=== PATIENT | female | born 1935 | race Caucasian/White ===

== ENCOUNTER → 2017-06-18 | Outpatient (CLI) | payer MEDICARE ==
[2017-06-18] VITALS (11 sets, daily range): BP systolic 103–159; BP diastolic 54–83
[~2017-06-18] VITALS: Ht 170.2 cm; Wt 72.6 kg
[~2017-06-18] MED LIST: ACETAMINOPHEN 325 MG TABLET. PO PRN; ALIS300T PO; ASCO1TAB5 PO; ASPI-482 PO; ATROPINE 0.5 MG/5 ML DISP.SYRIN. IV PRN; BISACODYL 10 MG SUPP.RECT. PR PRN; BUDE0.5A IH; CALC500T30 PO; CHOL500016 PO; CINN500C2 PO; CLOP75TA PO; CONTRAST GIVEN MC PRN; DILT300C52 PO; DOXY100C14 PO; FEXO180T81 PO; GLUC1TAB33 PO; GUAI600T47 PO; HEPARIN for IV BOLUS 10,000 UNIT/10 ML VIAL. IV ONE; HEPARIN for IV BOLUS 10,000 UNIT/10 ML VIAL. ONE; IODIXANOL 320 MG/ML 100 ML VIAL. IART ONE; IODIXANOL 320 MG/ML 100 ML VIAL. ONE; IPRA3AMP NEB; IV 1/2 NORMAL SALINE 1,000 ML IV SCH; LACTULOSE 20 GM/30 ML SOLUTION. PO PRN; LEVO75TA5 PO; LIDOCAINE 2% 20 ML VIAL. IJ ONE; LIDOCAINE 2% 20 ML VIAL. ONE; LOSA50TA2 PO; MAGNESIUM HYDROXIDE 2,400 MG/30 ML ORAL.SUSP. PO PRN; MELO7.5T29 PO; METO25TA4 PO; MIDAZOLAM HCL/PF 2 MG/2 ML VIAL. IV ONE; MIDAZOLAM HCL/PF 5 MG/5 ML VIAL. IV ONE; MIDAZOLAM HCL/PF 5 MG/5 ML VIAL. ONE; MULT1TAB52 PO; NITR0.4T22 SL; NITROGLYCERIN 200 MCG/2 ML SYRINGE FOR CATH/VASC LAB. IART ONE; NITROGLYCERIN 200 MCG/2 ML SYRINGE FOR CATH/VASC LAB. ONE; NITROGLYCERIN SUBLINGUAL 0.4 MG BOTTLE OF 25. SL PRN; ORPH100T PO; PARO20TA99 PO; PRED-220 PO; PRED20TA PO; TRAM50TA PO; UBID10CA5 PO; VENTOLIN HFA18 GM INH; fentaNYL PF VIAL 100 MCG/2 ML VIAL IV ONE; fentaNYL PF VIAL 100 MCG/2 ML VIAL ONE
[2017-06-18 08:23] LABS: CALCIUM 9.4 mg/dL (8.5-10.1); CREATININE 1.2 mg/dL (0.6-1.0); GFR 43.3; POTASSIUM 3.9 mmol/L (3.5-5.1)
[2017-06-18 08:34] LABS: HEMATOCRIT 44.4 % (36.0-47.0); HEMOGLOBIN 14.3 g/dL (12.0-15.5); RED BLOOD COUNT 4.78 x10^6/uL (3.50-5.40); RED CELL DISTRIBUTION WIDTH 13.7 % (11.5-14.5); WHITE BLOOD COUNT 10.2 x10^3/uL (4.0-11.0)
[2017-06-18 08:44] LABS: INR 0.9 (0.8-1.1); PROTHROMBIN TIME PATIENT 11.5 SEC (11.7-14.0)
--- NOTE | 2017-06-18 11:18 | PDOC ---
MODERATE SEDATION ASSESSMENT RISKS/ALTERNATIVES Risks/Alternatives Risks and alternatives of this type of sedation and procedure discussed with: RISK/ALTERNATIVES: Patient H & P ON CHART H & P H & P on chart and reviewed for co-morbid conditions and appropriate labs. H&P ON CHART: Yes STATUS PREG STATUS ASSESSED: N/A MEDS/ALLERGIES REVIEWED Meds/Allergies Reviewed Medications and Allergies including time and route of recently administered narcotics and sedatives. MEDS/ALLERGIES REVIEWED: Yes ASA RATING ASA RATING: II AIRWAY ASSESSMENT Airway Assessment Airway patency, oral function limitations, presence of caps, crowns, dentures, partials, and ability to extend neck assessed. AIRWAY ASSESSMENT: Yes MALLAMPATI SCORE MALLAMPATI SCORE: II PRE-SEDATION ASSESSMENT PRE-SEDATION ASSESSMENT: Yes RIGOBERTO NIEVES MD Jun 18, 2017 11:18
--- NOTE | 2017-06-18 11:50 | CARD ---
APPROVED REPORT Patient StatusOUT-PATIENT Canvas Baster Jumpbasting: Cate Chu RT (R) Procedure(s) performed: Successful WIRE MACHINE OPERATOR/stents placement to bilateral external iliac arteries Ssedation Time: 80 Minutes INDICATION FOR PROCEDURE The indication(s) include : 81-year-old female with history of peripheral vascular disease and claudi cation was found to have significant bilateral lower extremity peripheral vascular disease on aortogr am performed on 05/30/2017. She presented today for WIRE MACHINE OPERATOR/stent placement.. PROCEDURE NARRATIVE After explaining the risks, benefits and alternative options, informed consent was obtained from nancy ent. Patient brought to the cardiac Supervisor [employer] and her right groin was prepped and draped in the usual fashion. 20 mL of 2% lidocaine was infiltrated into the skin and subcutaneous tissues for local anest hesia. Arterial access was obtained in the right common femoral artery and a 6 Burmese britetip sheath was inserted. Selective angiography confirmed the previously described 90% stenosis involving the [facility] external iliac artery. This was crossed with a 0.035 inch Glidewire advantage guidewire, predilat ed with a 4 x 20 mm Castillo [place] balloon following which this was successfully treated with a 5 x 29 mm Sveta stent that was post-dilated with 6 x 20 mm Castillo [place] balloon. Follow-up angiography s howed resolution of the stenosis to 0% with good distal flow. Subsequently, the sheath in the right groin was exchanged to a 6 Burmese 45 cm destination sheath that was advanced over aortic raul into the left common iliac artery with the help of a 5 Burmese crosso odc catheter. Selective angiorrhaphy confirmed the previously described 90% stenosis involving the le external iliac artery. The superficial femoral artery stenoses in the proximal and mid segments wh ich were thought to be significant on aortogram were actually confirmed to be nonobstructive reaching at the most 50% stenosis severity. The stenosis in the left external iliac artery was crossed with t nayana same guidewire advantage, predilated with a 4 x 20 mm balloon following which this was successfull y treated with overlapping 6 x 29 mm and 6 x 39 mm Omnilink elite stents. Follow-up angiorrhaphy show ed resolution of the stenosis to 0% with good distal flow. Patient tolerated the procedure well. Hemo stasis in the right groin was achieved using mynx closure device. There were no immediate complicatio ns. Conclusion Successful WIRE MACHINE OPERATOR/stents placement to bilateral external iliac arteries.
== END | disposition home or self-care (01) ==
LOC: CCL 07:50
PROVIDERS: ATTEND Internal Medicine Cardiovascular Disease
DX: I70.213 Atherosclerosis of native arteries of extremities with intermittent claudication, bilateral legs (principal); I25.10 Atherosclerotic heart disease of native coronary artery without angina pectoris; E78.00 Pure hypercholesterolemia, unspecified; J44.9 Chronic obstructive pulmonary disease, unspecified; E03.9 Hypothyroidism, unspecified; F17.200 Nicotine dependence, unspecified, uncomplicated; Z87.440 Personal history of urinary (tract) infections; Z86.39 Personal history of other endocrine, nutritional and metabolic disease; Z87.39 Personal history of other diseases of the musculoskeletal system and connective tissue; Z88.8 Allergy status to other drugs, medicaments and biological substances; Z79.01 Long term (current) use of anticoagulants
CPT/HCPCS: 36415; 37221; 37223; 80048; 85027; 85610; 85730; 99152; 99153; C1769; C1771; C1876; C1885; C1892; J1644; J2250; J3010; J3490; G0269

== ENCOUNTER 2018-11-03 20:15 | Inpatient (IN) | payer MEDICARE, BC ==
[~2018-11-03] VITALS: Ht 167.6 cm; Wt 74.4 kg
[2018-11-03] VITALS (8 sets, daily range): BP systolic 90–130; BP diastolic 57–70
[~2018-11-03 20:15] MED LIST changes: -ACETAMINOPHEN 325 MG TABLET. PO PRN; -ATROPINE 0.5 MG/5 ML DISP.SYRIN. IV PRN; -BISACODYL 10 MG SUPP.RECT. PR PRN; -CONTRAST GIVEN MC PRN; -DILT300C52 PO; +DILT300C65 PO; -HEPARIN for IV BOLUS 10,000 UNIT/10 ML VIAL. IV ONE; -HEPARIN for IV BOLUS 10,000 UNIT/10 ML VIAL. ONE; -IODIXANOL 320 MG/ML 100 ML VIAL. IART ONE; -IODIXANOL 320 MG/ML 100 ML VIAL. ONE; -IPRA3AMP NEB; +IPRA3AMP29 NEB; -IV 1/2 NORMAL SALINE 1,000 ML IV SCH; -LACTULOSE 20 GM/30 ML SOLUTION. PO PRN; -LIDOCAINE 2% 20 ML VIAL. IJ ONE; -LIDOCAINE 2% 20 ML VIAL. ONE; +LOSA-73 PO; -LOSA50TA2 PO; -MAGNESIUM HYDROXIDE 2,400 MG/30 ML ORAL.SUSP. PO PRN; -MIDAZOLAM HCL/PF 2 MG/2 ML VIAL. IV ONE; -MIDAZOLAM HCL/PF 5 MG/5 ML VIAL. IV ONE; -MIDAZOLAM HCL/PF 5 MG/5 ML VIAL. ONE; -NITROGLYCERIN 200 MCG/2 ML SYRINGE FOR CATH/VASC LAB. IART ONE; -NITROGLYCERIN 200 MCG/2 ML SYRINGE FOR CATH/VASC LAB. ONE; -NITROGLYCERIN SUBLINGUAL 0.4 MG BOTTLE OF 25. SL PRN; -fentaNYL PF VIAL 100 MCG/2 ML VIAL IV ONE; -fentaNYL PF VIAL 100 MCG/2 ML VIAL ONE
--- NOTE | 2018-11-03 20:30 | NUR ---
Patient admitted to room 116 via gurney from [facility] ED accompanied by EMS medic; family in ICU waiting room. Patient alert/orientedx4, friendly and cooperative complaining of increased shortness of air which started today. Patient does appear dyspneic with rest and activity; patient assisted to toilet and when back to bed it took ~5min of recovery where she felt like she was breathing easier. Patient oriented to ICU routine, room, nursing call light, TV/Bed controls, Numeric pain scale, diet (NPO), activity (BR). Patient educated on Heparin gtt (started at [facility]) and plan to recheck UFH for monitoring. Also notified patient RN would be calling PCP and Cardiology. Patient verbalized understanding of above, will also notify family. See Admission information and Admission assessment.
--- NOTE | 2018-11-03 20:50 | NUR ---
Paged Dr Burton, returned page, notified of patient's admission, pain free, Heparin infusing, and shortness of air. Dr Burton states he will put admission orders in for the patient.
[2018-11-03] MEDS ORDERED: NITROGLYCERIN SUBLINGUAL 0.4 MG BOTTLE OF 25. SL PRN (21:00)
[2018-11-03] MEDS ORDERED: ONDANSETRON PF 4 MG/2 ML VIAL. IV PRN (21:00)
[2018-11-03] MEDS ORDERED: ACETAMINOPHEN 325 MG TABLET. PO PRN (21:00)
[2018-11-03] MEDS ORDERED: CALCIUM CARBONATE 500 MG TAB.CHEW PO PRN (21:00)
[2018-11-03] MEDS ORDERED: HEPARIN for IV BOLUS 10,000 UNIT/10 ML VIAL. IV PRN (21:00)
[2018-11-03] MEDS ORDERED: MORPHINE SULFATE 2 MG/ML VIAL. IV PRN (21:00)
[2018-11-03] MEDS ORDERED: HEPARIN 25,000UTS/500ML PREMIX 500 ML IV PRN (21:00)
--- NOTE | 2018-11-03 21:05 | NUR ---
Paged Dr Schrader, returned page, notified of transmission, patient continues to be pain free, reviewed [facility] labs, Heparin infusing, and Dr Burton placing orders to continue Heparin gtt. Orders received to obtain stat Troponin and call if greater than 10.
[2018-11-03] MEDS ORDERED: METOPROLOL TART IMMED RELEASE 25 MG TABLET. PO SCH (21:30)
[2018-11-03] MEDS: BUDESONIDE 0.5 MG/2 ML NEBU. NEB SCH (21:30)
[2018-11-03] MEDS: SENNOSIDES/DOCUSATE 8.6/50MG TABLET. PO SCH (21:30)
[2018-11-03] MEDS: IPRATRPIUM/ALBUTEROL 0.5/2.5MG 3 ML NEBU. NEB SCH (21:58)
--- NOTE | 2018-11-03 22:15 | NUR ---
Critical troponin of 29.54 called by lab at 2157. Dr Raciel malloy, returned page at [phone]; notified of critical troponin level, patient remains pain free and no ST changes seen on EKG. Per Dr Schrader, no change at this time, cont POC. Patient and family notified of elevated Troponin and POC. Patient educated to call RN if she develops any change of symptoms, patient verbalized understanding. Addendum: 11/04/18 at 0021 by BETO MOSQUERA RN Amended: Links added.
[2018-11-03] MEDS: METOPROLOL TART IMMED RELEASE 25 MG TABLET. PO SCH (22:30)
[2018-11-03] MEDS ORDERED: EVOL140S SQ (23:53)
[2018-11-04] VITALS (21 sets, daily range): BP systolic 99–188; BP diastolic 48–92
[2018-11-04] MEDS ORDERED: ALBUTEROL SULFATE 2.5 MG/3 ML NEBU. NEB PRN (00:45)
[2018-11-04 02:06] LABS: PROTHROMBIN TIME PATIENT 12.9 SEC (11.7-14.0)
[2018-11-04 02:08] LABS: UNFRACTIONATED HEPARIN TESTING 0.59 IU/mL (0.30-0.70)
--- NOTE | 2018-11-04 03:00 | NUR ---
UFH 0.59, per Heparin protocol, Heparin decreased by 1UNIT/KG/HR--Heparin now going at 9UNITS/KG/HR. Repeat UFH ordered for 0900.
--- NOTE | 2018-11-04 03:45 | NUR ---
At 0300 patient stated that she has had 'a couple' episodes of heart burn, she states it doesn't last long though. Educated patient that this discomfort could be heart related and to notify RN for any further episodes; patient verbalized understanding. AT 0342 patient again complained of midsternal burning, denies radiation or increased shortness of air, diaphoresis, nausea.vomiting. Patient given Nitro 0.04MG sublingual and pain was relieved by 034. Dr Schrader paged, returned page and notified of above. Orders received to start Nitro IV low dose. See orders.
[2018-11-04] MEDS: IPRATRPIUM/ALBUTEROL 0.5/2.5MG 3 ML NEBU. NEB SCH ×6 (03:47→22:33)
[2018-11-04] MEDS ORDERED: NITROGLYCERIN PREMIX 250 ML IV PRN (04:15)
[2018-11-04 05:43] LABS: BASO % 0 % (0-3); EOS % 0 % (0-3); HEMATOCRIT 38.4 % (36.0-47.0); HEMOGLOBIN 13.1 g/dL (12.0-15.5); LYMPH # 1.1 x10^3/uL (1.0-4.8); LYMPH % 12 % (24-48); MEAN CORPUSCULAR HEMOGLOBIN 31 pg (25-35); MEAN CORPUSCULAR HGB CONC 34 g/dL (31-37); MEAN CORPUSCULAR VOLUME 90 fL (79-100); MONO # 0.2 x10^3/uL (0.0-1.1); MONO % 2 % (0-9); NEUT % 86 % (31-73); PLATELET COUNT 294 x10^3/uL (140-400); RED BLOOD COUNT 4.25 x10^6/uL (3.50-5.40); RED CELL DISTRIBUTION WIDTH 13.4 % (11.5-14.5); WHITE BLOOD COUNT 9.4 x10^3/uL (4.0-11.0)
[2018-11-04 05:58] LABS: CALCIUM 9.5 mg/dL (8.5-10.1); GFR 53.2; POTASSIUM 3.5 mmol/L (3.5-5.1)
[2018-11-04] MEDS: LEVOTHYROXINE 75 MCG TABLET PO SCH (06:16)
--- NOTE | 2018-11-04 06:32 | EKG ---
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
[2018-11-04] MEDS: ASPIRIN ENTERIC COATED 81 MG TABLET.DR. PO SCH (08:00)
[2018-11-04] MEDS: BUDESONIDE 0.5 MG/2 ML NEBU. NEB SCH ×2 (08:13→19:31)
--- NOTE | 2018-11-04 08:33 | PDOC2 ---
MARLEEN ARZOLA SALES SUPPORT REPRESENTATIVE 11/04/18 0833: CARDIAC CONSULT DATE OF CONSULT Date of Consult DATE: 11/04/18 TIME: 08:23 REASON FOR CONSULT Reason for Consult: NSTEMI at [facility]. Trop 8 REFERRING PHYSICIAN Referring Physician: Dr. Burton SOURCE Source: Chart review, Patient HISTORY OF PRESENT ILLNESS HISTORY OF PRESENT ILLNESS This is an 83 yo female, with a history of CAD s/p PCI/stents, PAD, HTN, and HLP, who initially presented to [facility] secondary to shortness of breath. Initial troponin was noted at 8. Patient was transferred to [facility] for further evaluation and care. Has a history of COPD. Is supposed to wear 2L NC continuously. Patient reports she only generally wears at night and with activi ty. Patient reports waking up with shortness of breath yesterday morning. Placed oxygen and had breathing treatment without any significant improvement. Increased her oxygen to 4LNC. Shortness of breath persisted so she came to the ED for further evaluation and treatment. Does report experiencing intermittent chest pain overnight. Located in her central chest. Describes as burning. [place] like heartburn. No associated dizziness, diaphoresis, or palpitations. Reports chronic BACON, but has been worse recently. PAST MEDICAL HISTORY Past Medical History Cardiovascular: CAD, HTN, VA, Hyperlipidemia, Other (PAD) Pulmonary: COPD Hepatobiliary: Cholelithiasis Psych: Anxiety Musculoskeletal: Osteoarthritis Rheumatologic: No pertinent hx Infectious disease: No pertinent hx ENT: No pertinent hx Renal/: No pertinent hx Endocrine: Hypothyroidism, Osteopenia Dermatology: No pertinent hx PAST SURGICAL HISTORY Past Surgical History Other (PCI/VAZQUEZ to RCA, LCx, and LAD; bunionectomy; back surgery) FAMILY HISTORY Family History: Heart Disease, High Cholestrol, Hypertension SOCIAL HISTORY Social History Smoke: Quit ALCOHOL: none Drugs: None Lives: with Family CURRENT MEDICATIONS CURRENT MEDICATIONS Current Medications Medications (Trade) Dose Ordered Sig/Ria Route PRN Reason Start Time Stop Time Status Last Admin Dose Admin Budesonide (Pulmicort) 0.5 mg RTBID NEB 11/03/18 21:30 11/04/18 08:13 Guaifenesin (Mucinex) 600 mg BID PO 11/03/18 21:30 11/03/18 22:30 Albuterol/ Ipratropium (Duoneb) 3 ml Q4HRS NEB 11/04/18 00:00 5/6/19 08:13 Levothyroxine Sodium (Synthroid) 75 mcg DAILY06 PO 11/04/18 06:00 11/04/18 06:16 Nitroglycerin/ Dextrose 250 ml @ 1.5 mls/hr CONT PRN IV SEE I/O RECORD 11/04/18 04:15 11/04/18 04:45 ALLERGIES ALLERGIES: Coded Allergies: Wbcbyyg-Lnt-Ebz Reductase Inhibitor (Verified Allergy, Severe, MUSCLE WASTING, 03/26/15) ROS Review of System 14 point ROS conducted with pertinent positives noted above in HPI. PHYSICAL EXAM PHYSICAL EXAM General: Alert, Oriented X3, Cooperative, mild distress HEENT: Atraumatic, Mucous membr. moist/pink Lungs: Other (diminished, fine expiratory wheezes) Heart: Regular rate (SR), No murmurs Abdomen: Soft, No tenderness Extremities: No cyanosis, No edema Skin: No breakdown, No significant lesion Neuro: Normal speech, Sensation intact Psych/Mental Status: Mood NL MUSCULOSKELETAL: Osteoarthritic changes both hands VITALS VITALS Vital Signs Date Time Temp Pulse Resp B/P (MAP) Pulse Ox O2 Delivery O2 Flow Rate FiO2 11/04/18 08:13 97 Nasal Cannula 3.0 11/04/18 07:00 89 16 119/72 (88) 11/04/18 04:00 98.4 98.4 LABS Lab: Laboratory Tests Test 11/03/18 21:30 11/04/18 01:40 11/04/18 05:30 Troponin I Quantitative 29.540 ng/mL (0.000-0.055) Prothrombin Time 12.9 SEC (11.7-14.0) Prothromb Time International Ratio 1.0 (0.8-1.1) Activated Partial Thromboplast Time 75 SEC (24-38) Heparin Anti-Xa Act, Unfractionated 0.59 IU/mL (0.30-0.70) White Blood Count 9.4 x10^3/uL (4.0-11.0) Red Blood Count 4.25 x10^6/uL (3.50-5.40) Hemoglobin 13.1 g/dL (12.0-15.5) Hematocrit 38.4 % (36.0-47.0) Mean Corpuscular Volume 90 fL (79-100) Mean Corpuscular Hemoglobin 31 pg (25-35) Mean Corpuscular Hemoglobin Concent 34 g/dL (31-37) Red Cell Distribution Width 13.4 % (11.5-14.5) Platelet Count 294 x10^3/uL (140-400) Neutrophils (%) (Auto) 86 % (31-73) Lymphocytes (%) (Auto) 12 % (24-48) Monocytes (%) (Auto) 2 % (0-9) Eosinophils (%) (Auto) 0 % (0-3) Basophils (%) (Auto) 0 % (0-3) Neutrophils # (Auto) 8.0 x10^3uL (1.8-7.7) Lymphocytes # (Auto) 1.1 x10^3/uL (1.0-4.8) Monocytes # (Auto) 0.2 x10^3/uL (0.0-1.1) Eosinophils # (Auto) 0.0 x10^3/uL (0.0-0.7) Basophils # (Auto) 0.0 x10^3/uL (0.0-0.2) Sodium Level 131 mmol/L (136-145) Potassium Level 3.5 mmol/L (3.5-5.1) Chloride Level 94 mmol/L (98-107) Carbon Dioxide Level 26 mmol/L (21-32) Anion Gap 11 (6-14) Blood Urea Nitrogen 14 mg/dL (7-20) Creatinine 1.0 mg/dL (0.6-1.0) Estimated GFR (Cockcroft-Gault) 53.2 Glucose Level 171 mg/dL (70-99) Calcium Level 9.5 mg/dL (8.5-10.1) ECHOCARDIOGRAM ECHOCARDIOGRAM <Conclusion> Left ventricle systolic function is normal. The Ejection Fraction is 55-60%. Trace mitral regurgitation. Trace tricuspid regurgitation. The PA pressure was estimated at 21 mmHg. There is no evidence of significant pericardial effusion. DATE: 05/31/17 1006 <Conclusion> The left ventricular systolic function is normal and the ejection fraction is within normal range. The Ejection Fraction is 55-60%. There is normal LV segmental wall motion. DATE: 09/24/18 1454 STRESS TEST STRESS TEST Conclusion 1. No EKG evidence of stressed induced ischemia. 2. Nuclear imaging shows no reversible ischemia or infarct. 3. Normal left ventricular systolic function with an ejection fraction of greater than 70%. 4. Low risk Lexiscan nuclear stress test. DATE: 08/22/17 1607 HEART CATH HEART CATH Conclusion Successful multivessel PCI/drug eluting stents placement to the right coronary artery, posterior descending branch, left circumflex artery and the left anterior descending artery. Recommendations 1. ASA 325 mg daily 2. Effient 10 mg daily for preferably one year 3. Cardiovascular risk factor modification including smoking cessation DATE: 03/29/15 1411 FINDINGS 1. Hemodynamics: Left ventricular end-diastolic pressure of 19 mmHg. No pullback gradient across the aortic valve. 2. Coronary angiography: a. The left main coronary artery arose from the left sinus of Valsalva, gave rise to the left anterior descending and left circumflex arteries and showed 20% proximal segment stenosis. b. The left anterior descending artery showed widely patent stent in the midsegment. c. The left circumflex artery showed widely patent stent in the midsegment. d. The right coronary artery was a large and dominant vessel arising from the right sinus of Valsalva that showed widely patent stent in the mid to distal segment. Conclusion No significant coronary artery disease with widely patent previously placed stents in the left anterior descending, left circumflex and right coronary arteries. Recommendations Optimization of medical therapy and cardiovascular risk factor reduction for coronary artery disease. Check 2-D echo to assess LV function in lieu of her history of Takotsubo's cardiomyopathy. DATE: 05/30/17 1605 ASSESSMENT/PLAN ASSESSMENT/PLAN 1. NSTEMI: trop highest 29 2. Chest pain; concerns for UA 3. CAD s/p PCI/stents to LAD, LCx, and RCA. Most recent cath in 2017 noted patent stents 4. H/o Cardiomyopathy: ICM and/or Takotsubo. Most recent echo 08/2018 showed LV recovery with EF 55-60% 5. HTN: controlled 6. HLP: intolerant to statin. On Repatha 7. PAD; stable. 8. AECOPD; as per PCP Recommendations ASA Continue heparin gtt Echo to assess LV systolic function Lipid panel Given h/o CAD and chest pain in the setting of NSTEMI, recommend cardiac cath with possible PCI. R/b/a discussed with patient and she is agreeable. Continue BB, ARB RIGOBERTO NIEVES MD 11/04/18 1534: CARDIAC CONSULT ASSESSMENT/PLAN ASSESSMENT/PLAN Patient seen and examined. Agree with VFX ARTIST's assessment and plan. Patient with history of coronary artery disease s/p multivessel PCI/stents placement in the past presenting with non-STEMI We will proceed with cardiac catheterization and possible angioplasty. Risks and benefits were explained and she is agreeable. Continue current medications including heparin infusion per protocol. Thank you for your consultation. MARLEEN ARZOLA APRN November 04, 2018 08:33 RIGOBERTO NIEVES MD November 04, 2018 15:34
[2018-11-04] MEDS ORDERED: [UNRECOGNIZED DRUG - OTHER] PO SCH (09:00)
[2018-11-04] MEDS: SENNOSIDES/DOCUSATE 8.6/50MG TABLET. PO SCH ×2 (09:00→21:15)
[2018-11-04] MEDS: MULTIVITAMIN with MINERAL TABLET. PO SCH (09:00)
[2018-11-04] MEDS: LOSARTAN POTASSIUM 50 MG TABLET. PO SCH (09:00)
[2018-11-04] MEDS ORDERED: GLUC SU PO SCH (09:00)
[2018-11-04] MEDS: hydroCHLOROthiazide 25 MG TABLET PO SCH (09:00)
[2018-11-04] MEDS: CHOLECALCIFEROL (VITAMIN D3) 5,000 UNIT CAPSULE PO SCH (09:00)
[2018-11-04] MEDS ORDERED: NON FORMULARY ITEM (Cinnamon Bark (Cinnamon) 500 MG) PO SCH (09:00)
[2018-11-04] MEDS: PARoxetine 20 MG TABLET PO SCH (09:00)
[2018-11-04] MEDS: CLOPIDOGREL BISULFATE 75 MG TABLET PO SCH (09:00)
[2018-11-04] MEDS ORDERED: UBIDECARENONE 10 MG PO SCH (09:00)
[2018-11-04] MEDS ORDERED: VIT C PO SCH (09:00)
[2018-11-04] MEDS ORDERED: LOSARTAN POTASSIUM 50 MG TABLET. PO SCH (09:00)
[2018-11-04] MEDS ORDERED: NON FORMULARY ITEM (Ascorbate Calcium/Bioflavonoid (Ester-C 1,000 Mg Tablet) 1 EACH) PO SCH (09:00)
[2018-11-04] MEDS: METOPROLOL TART IMMED RELEASE 25 MG TABLET. PO SCH ×2 (09:00→21:15)
[2018-11-04] MEDS ORDERED: CHONDRO SU A PO SCH (09:00)
[2018-11-04] MEDS: CETIRIZINE HCL 10 MG TABLET. PO SCH (09:00)
--- NOTE | 2018-11-04 09:47 | PDOC1 ---
History and Physical Date of Admission: Date of Admission DATE: 11/04/18 TIME: 09:39 Chief Complaint: Problems: (1) Anxiety (2) COPD exacerbation (3) NSTEMI (non-ST elevated myocardial infarction) Chief Complain: Acute myocardial infarction noted at [facility] with elevated troponin chest pain and shortness of breath History of Present Illness: HPI: Mrs. Toledo is a middle-aged white female who has COPD she is on oxygen at home but now her oxygen requirements have increased she was on 2 L now she's on 4 She had chest pain and went to [facility] emergency room where a troponin drawl was noted be at 8.0 she was then transferred to our intensive care unit where she is currently being examined She is on a heparin drip and is probably undergoing to the Transportation Maintenance Worker here this morning She still has chest pain despite nitroglycerin drip as well rates her symptoms at 7 out of 10 Has associated shortness of breath Moving makes it worse I discussed this with the family at length (she has 3 daughters here ) Past Medical/Surgical History: PMH/PSH: CAD s/p PCI/stents to LAD, LCx, and RCA. Most recent cath in 2017 noted patent stents H/o Cardiomyopathy: ICM and/or Takotsubo. Most recent echo 08/2018 showed LV recovery with EF 55-60% HTN: PAD; stable. COPD O2 dependent Anxiety Allergies: Allergies: Coded Allergies: Qnjrtjx-Ixk-Lym Reductase Inhibitor (Verified Allergy, Severe, MUSCLE WASTING, 03/26/15) Family History: Family History: CAD Social History: Social Hisoty: She smokes but is trying to quit no drinking or drugs she is retired has 4 children Current Medications: Current Medications Current Medications Ondansetron HCl (Zofran) 4 mg PRN Q6HRS PRN IV NAUSEA/VOMITING; Start 11/03/18 at 21:00 Calcium Carbonate/ Glycine (Tums) 500 mg PRN Q3HRS PRN PO UPSET STOMACH; Start 11/03/18 at 21:00 Morphine Sulfate (Morphine Sulfate) 2 mg PRN Q1HR PRN IV PAIN; Start 11/03/18 at 21:00 Acetaminophen (Tylenol) 650 mg PRN Q6HRS PRN PO Headaches, Temp > 101.5F; Start 11/03/18 at 21:00 Senna/Docusate Sodium (Senna Plus) 1 tab BID PO ; Start 11/03/18 at 21:00 Heparin Sodium/ Dextrose 500 ml @ 0 mls/hr CONT PRN IV SEE I/O RECORD; Start 11/03/18 at 21:00 Heparin Sodium (Porcine) (Heparin Sodium) 1,750 unit PRN Q6HRS PRN IV FOR UFH LEVEL LESS THAN 0.2; Start 11/03/18 at 21:00 Aspirin (Ecotrin) 81 mg DAILYWBKFT PO ; Start 11/04/18 at 08:00 Budesonide (Pulmicort) 0.5 mg RTBID NEB Last administered on 11/04/18at 08:13; Start 11/03/18 at 21:30 Clopidogrel Bisulfate (Plavix) 75 mg DAILY PO ; Start 11/04/18 at 09:00 Guaifenesin (Mucinex) 600 mg BID PO Last administered on 11/03/18at 22:30; Start 11/03/18 at 21:30 Albuterol/ Ipratropium (Duoneb) 3 ml Q4HRS NEB Last administered on 11/04/18at 08:13; Start 11/04/18 at 00:00 Levothyroxine Sodium (Synthroid) 75 mcg DAILY06 PO Last administered on 11/04/18at 06:16; Start 11/04/18 at 06:00 Losartan Potassium (Cozaar) 50 mg DAILY PO ; Start 11/04/18 at 09:00; Stop 11/04/18 at 09:00; Status DC Metoprolol Tartrate (Lopressor) 25 mg BID PO ; Start 11/03/18 at 21:30; Stop 11/03/18 at 21:48; Status DC Nitroglycerin (Nitrostat) 0.4 mg PRN Q5MIN PRN SL CHEST PAIN; Start 11/03/18 at 21:00 Non-Formulary Medication (Ascorbate Calcium/ Bioflavonoid (Vi-C 1,000 Mg Tablet)) 1 each DAILY PO ; Start 11/04/18 at 09:00; Status UNV Vitamin D (Vitamin D3) 5,000 unit DAILY PO ; Start 11/04/18 at 09:00 Non-Formulary Medication (Cinnamon Bark (Cinnamon)) 500 mg DAILY PO ; Start 11/04/18 at 09:00; Status UNV Cetirizine HCl (ZyrTEC) 10 mg DAILY PO ; Start 11/04/18 at 09:00 Non-Formulary Medication (Gluc Tran/Chondro Tran A/Vit C/Mn (Glucosamine Chondroitin Tab)) 1 each DAILY PO ; Start 11/04/18 at 09:00; Status UNV Multivitamins (Thera M Plus) 1 tab DAILY PO ; Start 11/04/18 at 09:00 Paroxetine HCl (Paxil) 20 mg DAILY PO ; Start 11/04/18 at 09:00 Non-Formulary Medication (Ubidecarenone (Co Q-10)) 10 mg DAILY PO ; Start 11/04/18 at 09:00; Status UNV Losartan Potassium (Cozaar) 100 mg DAILY PO ; Start 11/04/18 at 09:00 Metoprolol Tartrate (Lopressor) 12.5 mg BID PO ; Start 11/03/18 at 22:15 Hydrochlorothiazide (Hydrodiuril) 25 mg DAILY PO ; Start 11/04/18 at 09:00 Albuterol Sulfate (Ventolin Neb Soln) 2.5 mg PRN Q4HRS PRN NEB SHORTNESS OF BREATH; Start 11/04/18 at 00:45 Nitroglycerin/ Dextrose 250 ml @ 1.5 mls/hr CONT PRN IV SEE I/O RECORD Last administered on 11/04/18at 04:45; Start 11/04/18 at 04:15 Active Scripts Active Reported Ventolin Hfa Inhaler (Albuterol Sulfate) 18 Gm Hfa.aer.ad 2 Puff INH Q4HRS Vi-C 1,000 Mg Tablet (Ascorbate Calcium/Bioflavonoid) 1 Each Tablet 1 Each PO DAILY Multivitamins (Multivitamin) 1 Each Tablet 1 Tab PO DAILY Glucosamine Chondroitin Tab (Gluc Tran/Chondro Tran A/Vit C/Mn) 1 Each Tablet 1 Each PO DAILY Vitamin D3 (Cholecalciferol (Vitamin D3)) 5,000 Unit Tablet 5,000 Unit PO DAILY Cinnamon (Cinnamon Bark) 500 Mg Capsule 500 Mg PO DAILY Calcium (Calcium Carbonate) 500 Mg Tablet 500 Mg PO DAILY Mucinex (Guaifenesin) 600 Mg Tablet.er 600 Mg PO BID Malena Allergy (Fexofenadine Hcl) 180 Mg Tablet 1 Tab PO DAILY Budesonide 0.5 Mg/2 Ml Ampul.neb 0.5 Mg IH BID Clopidogrel (Clopidogrel Bisulfate) 75 Mg Tablet 75 Mg PO DAILY Paxil (Paroxetine Hcl) 20 Mg Tablet 20 Mg PO DAILY NITROGLYCERIN SubLingual (Nitroglycerin) 0.4 Mg Tab.subl 0.4 Mg SL PRN Q5MIN PRN Metoprolol Tartrate 25 Mg Tablet 12.5 Mg PO BID Levothyroxine Sodium 75 Mcg Tablet 75 Mcg PO DAILYAC Duoneb 0.5-3(2.5) Mg/3 Ml (Albuterol/Ipratropium) 3 Ml Ampul.neb 3 Ml NEB Q4HRS Co Q-10 (Ubidecarenone) 10 Mg Capsule 10 Mg PO DAILY Cozaar (Losartan Potassium) 50 Mg Tablet 100 Mg PO DAILY Aspir 81 (Aspirin) 81 Mg Tablet.dr 81 Mg PO DAILY ROS: Review of Systems Review of System REVIEW OF SYSTEMS: GENERAL: Denies weakness SKIN: No bruising, hair changes or rashes. EYES: No blurred, double or loss of vision. NOSE AND THROAT: No history of nosebleeds, hoarseness or sore throat. HEART: She complains of chest pain LUNGS: She complains of shortness of breath GASTROINTESTINAL: Denies changes in appetite, nausea, vomiting, diarrhea or constipation. GENITOURINARY: No history of frequency, urgency, hesitancy or nocturia. NEUROLOGIC: Denies history of numbness, tingling, tremor or weakness. PSYCHIATRIC: No history of panic, anxiety or depression. ENDOCRINE: No history of heat or cold intolerance, polyuria or polydipsia. EXTREMITIES: Denies muscle weakness, joint pain, pain on walking or stiffness. Physical Exam: Vital Signs: Vital Signs Date Time Temp Pulse Resp B/P (MAP) Pulse Ox O2 Delivery O2 Flow Rate FiO2 11/04/18 09:09 94 18 102/65 (77) 95 Nasal Cannula 3.0 11/04/18 04:00 98.4 98.4 Physcial Exam: GEN.: She is being examined in the ICU on a heparin drip and a nitro drip has 3 daughters present. She is critically ill and currently having chest pain and is on oxygen per nasal cannula HEENT: Head is normocephalic, atraumatic NECK: Supple, no JVD LUNGS: Decreased breath sounds HEART: RRR, S1, S2 present. Peripheral pulses intact ABDOMEN: Soft, nontender. Positive bowel sounds no organomegaly EXTREMITIES: Without any cyanosis, clubbing, or edema. Pedal pulses intact NEUROLOGIC: Normal speech, normal tone. A&O x 3 PSYCHIATRIC: She seems anxious SKIN: No ulcerations or rashes VASCULAR: Good capillary refill Labs: Labs: Laboratory Tests Test 11/03/18 21:30 11/04/18 01:40 11/04/18 05:30 Troponin I Quantitative 29.540 ng/mL (0.000-0.055) Prothrombin Time 12.9 SEC (11.7-14.0) Prothromb Time International Ratio 1.0 (0.8-1.1) Activated Partial Thromboplast Time 75 SEC (24-38) Heparin Anti-Xa Act, Unfractionated 0.59 IU/mL (0.30-0.70) White Blood Count 9.4 x10^3/uL (4.0-11.0) Red Blood Count 4.25 x10^6/uL (3.50-5.40) Hemoglobin 13.1 g/dL (12.0-15.5) Hematocrit 38.4 % (36.0-47.0) Mean Corpuscular Volume 90 fL (79-100) Mean Corpuscular Hemoglobin 31 pg (25-35) Mean Corpuscular Hemoglobin Concent 34 g/dL (31-37) Red Cell Distribution Width 13.4 % (11.5-14.5) Platelet Count 294 x10^3/uL (140-400) Neutrophils (%) (Auto) 86 % (31-73) Lymphocytes (%) (Auto) 12 % (24-48) Monocytes (%) (Auto) 2 % (0-9) Eosinophils (%) (Auto) 0 % (0-3) Basophils (%) (Auto) 0 % (0-3) Neutrophils # (Auto) 8.0 x10^3uL (1.8-7.7) Lymphocytes # (Auto) 1.1 x10^3/uL (1.0-4.8) Monocytes # (Auto) 0.2 x10^3/uL (0.0-1.1) Eosinophils # (Auto) 0.0 x10^3/uL (0.0-0.7) Basophils # (Auto) 0.0 x10^3/uL (0.0-0.2) Sodium Level 131 mmol/L (136-145) Potassium Level 3.5 mmol/L (3.5-5.1) Chloride Level 94 mmol/L (98-107) Carbon Dioxide Level 26 mmol/L (21-32) Anion Gap 11 (6-14) Blood Urea Nitrogen 14 mg/dL (7-20) Creatinine 1.0 mg/dL (0.6-1.0) Estimated GFR (Cockcroft-Gault) 53.2 Glucose Level 171 mg/dL (70-99) Calcium Level 9.5 mg/dL (8.5-10.1) Laboratory Tests Test 11/03/18 21:30 11/04/18 01:40 11/04/18 05:30 Troponin I Quantitative 29.540 ng/mL (0.000-0.055) Prothrombin Time 12.9 SEC (11.7-14.0) Prothromb Time International Ratio 1.0 (0.8-1.1) Activated Partial Thromboplast Time 75 SEC (24-38) Heparin Anti-Xa Act, Unfractionated 0.59 IU/mL (0.30-0.70) White Blood Count 9.4 x10^3/uL (4.0-11.0) Red Blood Count 4.25 x10^6/uL (3.50-5.40) Hemoglobin 13.1 g/dL (12.0-15.5) Hematocrit 38.4 % (36.0-47.0) Mean Corpuscular Volume 90 fL (79-100) Mean Corpuscular Hemoglobin 31 pg (25-35) Mean Corpuscular Hemoglobin Concent 34 g/dL (31-37) Red Cell Distribution Width 13.4 % (11.5-14.5) Platelet Count 294 x10^3/uL (140-400) Neutrophils (%) (Auto) 86 % (31-73) Lymphocytes (%) (Auto) 12 % (24-48) Monocytes (%) (Auto) 2 % (0-9) Eosinophils (%) (Auto) 0 % (0-3) Basophils (%) (Auto) 0 % (0-3) Neutrophils # (Auto) 8.0 x10^3uL (1.8-7.7) Lymphocytes # (Auto) 1.1 x10^3/uL (1.0-4.8) Monocytes # (Auto) 0.2 x10^3/uL (0.0-1.1) Eosinophils # (Auto) 0.0 x10^3/uL (0.0-0.7) Basophils # (Auto) 0.0 x10^3/uL (0.0-0.2) Sodium Level 131 mmol/L (136-145) Potassium Level 3.5 mmol/L (3.5-5.1) Chloride Level 94 mmol/L (98-107) Carbon Dioxide Level 26 mmol/L (21-32) Anion Gap 11 (6-14) Blood Urea Nitrogen 14 mg/dL (7-20) Creatinine 1.0 mg/dL (0.6-1.0) Estimated GFR (Cockcroft-Gault) 53.2 Glucose Level 171 mg/dL (70-99) Calcium Level 9.5 mg/dL (8.5-10.1) Images: Images No current images are available Assessment/Plan Assessment/Plan Acute myocardial infarction and COPD exacerbation Plan IV heparin IV nitroglycerin Cardiac monitoring in the ICU Consult cardiology and they have just seen the patient she is tentatively scheduled to go to cardiac catheter today Serial enzymes Serial EKGs DVT prophylaxis Full code This is a critically ill patient in the ICU have an active myocardial infarction Total time 32 minutes BEKA FISHER III DO November 04, 2018 09:47
[2018-11-04] MEDS ORDERED: LIDOCAINE 1% PF 2 ML VIAL. ONE (10:01)
[2018-11-04] MEDS ORDERED: IODIXANOL 320 MG/ML 100 ML VIAL. ONE (10:01)
[2018-11-04] MEDS ORDERED: fentaNYL PF VIAL 100 MCG/2 ML VIAL ONE (10:09)
[2018-11-04] MEDS ORDERED: NITROGLYCERIN 200 MCG/2 ML SYRINGE FOR CATH/VASC LAB. ONE (10:09)
[2018-11-04] MEDS ORDERED: HEPARIN for IV BOLUS 10,000 UNIT/10 ML VIAL. ONE (10:09)
[2018-11-04] MEDS ORDERED: VERAPAMIL 5 MG/2 ML VIAL. ONE ×2 (10:09→11:00)
[2018-11-04] MEDS ORDERED: MIDAZOLAM HCL/PF 2 MG/2 ML VIAL. ONE (10:09)
--- NOTE | 2018-11-04 10:30 | NUR ---
0800 aspirin administered around 0856 with small sip of water per cardiology. Medication administration was not saved at this time. This nurse went back and manually administered medication through [employer] around 1025.
[2018-11-04] MEDS ORDERED: LIDOCAINE 1% Multi-Dose 20 ML VIAL. ONE (10:43)
[2018-11-04] MEDS ORDERED: IODIXANOL 320 MG/ML 100 ML VIAL. IART ONE (11:00)
[2018-11-04] MEDS ORDERED: LIDOCAINE 1% PF 2 ML VIAL. INJ ONE (11:00)
[2018-11-04] MEDS ORDERED: LIDOCAINE 1% Multi-Dose 20 ML VIAL. INJ ONE (11:00)
[2018-11-04] MEDS ORDERED: MIDAZOLAM HCL/PF 2 MG/2 ML VIAL. IV ONE (11:00)
[2018-11-04] MEDS ORDERED: fentaNYL PF VIAL 100 MCG/2 ML VIAL IV ONE (11:00)
[2018-11-04 11:08] LABS: CHOLESTEROL/HDL RATIO 2.2
--- NOTE | 2018-11-04 11:25 | CARD ---
MR#: [id number] Date of Study: 11/04/2018 Ordering Physician: MARLEEN ARZOLA, Referring Physician: DALIA MATUTE, Tech: Ora Torres [facility] APPROVED REPORT EXAM: LIMITED Two-dimensional and M-mode echocardiogram. Other Information Quality : Technically LimitedHR: 95bpm Rhythm : NSRTechnically limited study due to COPD. INDICATION CAD 2D DIMENSIONS RVDd2.9 (2.9-3.5cm)IVSd1.0 (0.7-1.1cm) LVDd3.4 (3.9-5.9cm)PWd0.8 (0.7-1.1cm) LVDs2.9 (2.5-4.0cm)FS (%) 14.6 % SV15.0 mlLVEF(%)32.0 (>50%) LEFT VENTRICLE The left ventricle is normal size. There is normal left ventricular wall thickness. The systolic func tion is moderately impaired. The Ejection Fraction is 40-45%. There is mid septal and mid posterior w all hypokinesis suggestive of stress-induced cardio myopathy. RIGHT VENTRICLE The right ventricle is normal size. There is normal right ventricular wall thickness. The right ventr icular systolic function is normal. ATRIA The left atrium size is normal. The right atrium size is normal. The interatrial septum is intact wit h no evidence for an atrial septal defect or patent foramen ovale as noted on 2-D or Doppler imaging. GREAT VESSELS Not evaluated. PERICARDIAL EFFUSION There is no evidence of significant pericardial effusion. Critical Notification Critical Value: No <Conclusion> The systolic function is moderately impaired. The Ejection Fraction is 40-45%. There is mid septal and mid posterior wall hypokinesis suggestive of stress-induced cardio myopathy. Limited echo only. Signed by : Jerrell Can, Electronically Approved : 11/04/2018 11:25:00
[2018-11-04 11:38] LABS: % ATYL 1 % (0-0); % BANDS 2 % (0-9); % LYMPHS 18 % (24-48); % MONOS 4 % (0-10); % SEGS 75 % (35-66); PLT ESTIMATE ADEQUATE (ADEQUATE)
[2018-11-04] MEDS: IV 1/2 NORMAL SALINE 1,000 ML IV SCH (11:57)
--- NOTE | 2018-11-04 11:57 | PDOC ---
MODERATE SEDATION ASSESSMENT RISKS/ALTERNATIVES Risks/Alternatives Risks and alternatives of this type of sedation and procedure discussed with: RISK/ALTERNATIVES: Patient H & P ON CHART H & P H & P on chart and reviewed for co-morbid conditions and appropriate labs. H&P ON CHART: Yes STATUS PREG STATUS ASSESSED: N/A MEDS/ALLERGIES REVIEWED Meds/Allergies Reviewed Medications and Allergies including time and route of recently administered narcotics and sedatives. MEDS/ALLERGIES REVIEWED: Yes ASA RATING ASA RATING: III AIRWAY ASSESSMENT Airway Assessment Airway patency, oral function limitations, presence of caps, crowns, dentures, partials, and ability to extend neck assessed. AIRWAY ASSESSMENT: Yes MALLAMPATI SCORE MALLAMPATI SCORE: II PRE-SEDATION ASSESSMENT PRE-SEDATION ASSESSMENT: Yes RIGOBERTO NIEVES MD November 04, 2018 11:57
[2018-11-04] MEDS ORDERED: 0.9 % SODIUM CHLORIDE 10 ML DISP.SYRIN. IV PRN (12:00)
[2018-11-04] MEDS ORDERED: NITROGLYCERIN SUBLINGUAL 0.4 MG BOTTLE OF 25. SL PRN (12:00)
--- NOTE | 2018-11-04 12:44 | NUR ---
0330 07/03 NS non-administered r/t previous bag still running. Addendum: 11/04/18 at 1246 by SHAR LORENZO RN Note entered on incorrect pt.
--- NOTE | 2018-11-04 14:02 | CARD ---
MR#: [id number] Date of Study: 11/04/2018 Ordering Physician: DALIA MATUTE, Referring Physician: DALIA MATUTE, Tech: RT Christel (R) APPROVED REPORT Technologist: Laurent Zeng RT (R) Nurse: Angy Morales R.N. Procedure(s) performed: Left heart catheterization, selective coronary angiography and left ventricul ography Moderate sedation: 40 mins Fluoro time:3.2 minutes Contrast: 107cc Dose:28 Gycm2 INDICATION The indication(s) include : non-STEMI . CS Clinical Frailty Scale [facility] Clinical Frailty Scale: Well Heart Failure Heart Failure: No PROCEDURE NARRATIVE After explaining the risks, benefits and alternative options, informed consent was obtained from nancy ent. Patient was brought to the cardiac Gliding Pilot Instructor and right wrist was prepped and draped in the usual fashion after confirming a positive modified Juan's test. Attempts to obtain arterial access in th e right radial artery however unsuccessful due to small caliber vessel. 20 mL of 2% lidocaine was inf iltrated into the skin and subcutaneous tissues of the previously prepped right groin for local anest hesia. Arterial access was obtained in the right common femoral artery and 6 Irish sheath was insert ed. 6 Irish JL4 and 6 Irish JR4 catheters were used to perform selective angiography of the left an d right coronary arteries. 6 Irish pigtail catheter was used to perform left ventriculography. Patie nt tolerated the procedure well. Hemostasis was achieved using mynx closure device. There were no im mediate complications. The following findings were noted. FINDINGS 1. Hemodynamics: Left ventricular end-diastolic pressure of 15 mmHg. No pullback gradient across th e aortic valve. 2. Left ventriculography: Hypokinesis of the mid to distal segments of anterolateral and inferior wa lls consistent with stress-induced/takotsubo's cardiomyopathy. The ejection fraction is estimated at 40-45%. No significant mitral regurgitation seen. 3. Coronary angiography: a. The left main coronary artery arose from the left sinus of Valsalva, gave rise to the left anteri or descending and left circumflex arteries and showed 30% proximal segment stenosis. b. The left anterior descending artery showed widely patent previously placed stent in the proximal to midsegment. The mid to distal segment showed 40% stenosis. c. The left circumflex artery showed widely patent stent in the midsegment. d. The right coronary artery was a large and dominant vessel arising from the right sinus of Valsalv a that showed widely patent stent in the mid to distal segment. Conclusion 1. Patent previously placed stents in the left anterior descending, left circumflex and right juarez ry arteries. 2. Hypokinesis of the mid segments of anterolateral and inferior pemberton consistent with stress-induce d/takotsubo's cardiomyopathy. The ejection fraction is estimated at 40-45%. Recommendations Medical Therapy Signed by : Zachariah Bautista, Electronically Approved : 11/04/2018 14:01:28
--- NOTE | 2018-11-04 14:39 | NUR ---
1157 IV fluids non-administered r/t previous bag still running.
--- NOTE | 2018-11-04 15:13 | NUR ---
SS following for discharge planning. SS reviewed pt chart. Pt is from home and is currently requiring oxygen. Per notes pt was on oxygen at home. No discharge needs noted at this time. SS will continue to follow for discharge planning.
[2018-11-05 02:23] VITALS: BP 133/60
[2018-11-05] MEDS: IPRATRPIUM/ALBUTEROL 0.5/2.5MG 3 ML NEBU. NEB SCH ×3 (02:41→10:25)
[2018-11-05 03:33] LABS: BASO % 0 % (0-3); EOS # 0.1 x10^3/uL (0.0-0.7); EOS % 1 % (0-3); HEMATOCRIT 36.1 % (36.0-47.0); HEMOGLOBIN 11.6 g/dL (12.0-15.5); LYMPH % 24 % (24-48); MEAN CORPUSCULAR HEMOGLOBIN 29 pg (25-35); MEAN CORPUSCULAR HGB CONC 32 g/dL (31-37); MEAN CORPUSCULAR VOLUME 91 fL (79-100); MONO # 1.2 x10^3/uL (0.0-1.1); MONO % 10 % (0-9); NEUT # 8.2 x10^3uL (1.8-7.7); NEUT % 65 % (31-73); PLATELET COUNT 289 x10^3/uL (140-400); RED BLOOD COUNT 3.99 x10^6/uL (3.50-5.40); RED CELL DISTRIBUTION WIDTH 13.7 % (11.5-14.5); WHITE BLOOD COUNT 12.6 x10^3/uL (4.0-11.0)
[2018-11-05 03:40] LABS: CALCIUM 9.2 mg/dL (8.5-10.1); CREATININE 0.9 mg/dL (0.6-1.0); GFR 60.1; POTASSIUM 3.7 mmol/L (3.5-5.1)
[2018-11-05] MEDS: IV 1/2 NORMAL SALINE 1,000 ML IV SCH (04:37)
[2018-11-05 07:00] VITALS: BP 157/86
[2018-11-05] MEDS: BUDESONIDE 0.5 MG/2 ML NEBU. NEB SCH (07:01)
[2018-11-05] MEDS: LEVOTHYROXINE 75 MCG TABLET PO SCH (07:37)
[2018-11-05] MEDS: PARoxetine 20 MG TABLET PO SCH (08:25)
[2018-11-05] MEDS: METOPROLOL TART IMMED RELEASE 25 MG TABLET. PO SCH (08:26)
[2018-11-05] MEDS: CLOPIDOGREL BISULFATE 75 MG TABLET PO SCH (08:27)
[2018-11-05] MEDS: SENNOSIDES/DOCUSATE 8.6/50MG TABLET. PO SCH (08:27)
[2018-11-05] MEDS: ASPIRIN ENTERIC COATED 81 MG TABLET.DR. PO SCH (08:28)
[2018-11-05] MEDS: hydroCHLOROthiazide 25 MG TABLET PO SCH (08:28)
[2018-11-05] MEDS: LOSARTAN POTASSIUM 50 MG TABLET. PO SCH (08:28)
[2018-11-05] MEDS: MULTIVITAMIN with MINERAL TABLET. PO SCH (08:28)
[2018-11-05] MEDS: CHOLECALCIFEROL (VITAMIN D3) 5,000 UNIT CAPSULE PO SCH (08:28)
[2018-11-05] MEDS: CETIRIZINE HCL 10 MG TABLET. PO SCH (08:30)
--- NOTE | 2018-11-05 10:08 | PDOC ---
RICHARD ANDERSEN [employer] 11/05/18 1007: CARDIO Progress Notes Date and Time Date of Service 11/05/2018 Time of Evaluation 0930 Subjective Subjective: No Chest Pain, No shortness of breath Vitals Vitals Vital Signs Date Time Temp Pulse Resp B/P (MAP) Pulse Ox O2 Delivery O2 Flow Rate FiO2 11/05/18 08:28 81 157/86 11/05/18 08:00 Nasal Cannula 3.0 11/05/18 07:02 94 11/05/18 07:00 97.5 22 97.5 Weight Weight [ ] Input and Output Intake and Output Intake and Output 11/05/18 07:00 Intake Total 1665.75 ml Output Total 300 ml Balance 1365.75 ml Intake Oral 1150 ml IV Total 515.75 ml Output Urine Total 300 ml # Voids 3 Laboratory Labs Laboratory Tests Test 11/04/18 15:05 11/05/18 02:55 Heparin Anti-Xa Act, Unfractionated < 0.10 IU/mL (0.30-0.70) White Blood Count 12.6 x10^3/uL (4.0-11.0) Red Blood Count 3.99 x10^6/uL (3.50-5.40) Hemoglobin 11.6 g/dL (12.0-15.5) Hematocrit 36.1 % (36.0-47.0) Mean Corpuscular Volume 91 fL (79-100) Mean Corpuscular Hemoglobin 29 pg (25-35) Mean Corpuscular Hemoglobin Concent 32 g/dL (31-37) Red Cell Distribution Width 13.7 % (11.5-14.5) Platelet Count 289 x10^3/uL (140-400) Neutrophils (%) (Auto) 65 % (31-73) Lymphocytes (%) (Auto) 24 % (24-48) Monocytes (%) (Auto) 10 % (0-9) Eosinophils (%) (Auto) 1 % (0-3) Basophils (%) (Auto) 0 % (0-3) Neutrophils # (Auto) 8.2 x10^3uL (1.8-7.7) Lymphocytes # (Auto) 3.0 x10^3/uL (1.0-4.8) Monocytes # (Auto) 1.2 x10^3/uL (0.0-1.1) Eosinophils # (Auto) 0.1 x10^3/uL (0.0-0.7) Basophils # (Auto) 0.0 x10^3/uL (0.0-0.2) Sodium Level 134 mmol/L (136-145) Potassium Level 3.7 mmol/L (3.5-5.1) Chloride Level 98 mmol/L (98-107) Carbon Dioxide Level 28 mmol/L (21-32) Anion Gap 8 (6-14) Blood Urea Nitrogen 15 mg/dL (7-20) Creatinine 0.9 mg/dL (0.6-1.0) Estimated GFR (Cockcroft-Gault) 60.1 Glucose Level 108 mg/dL (70-99) Calcium Level 9.2 mg/dL (8.5-10.1) Physical Exam HEENT: Neck Supple W Full Motion Chest: Symmetric LUNGS: Other (scott diffuse wheeze) Heart: S1S2, RRR (SR) Abdomen: Soft N/T Extremities: No Edema, No Calf Tenderness Neurology: alert, oriented, follow commands Other Exams right groin arteriotomy site intact, no swelling, no erythema, neurovascular status to bilateral LE intact. Assessment Assessment 1. NSTEMI: trop highest 29, 3VD with patent stents. Compatible with takotsubo 2. CP, potentially from bronchospasm 3. Known CAD: S/P LHC as noted above 4. NICM: EF 40-45% Takotsubo 5. HTN: controlled 6. HLP: intolerant to statin. On Repatha. lipids on goal 7. PAD; clinically stable. 8. AECOPD; as per PCP Recommendations Continue home ASA/plavix Continue with ARB/BB HBPM bid for 1 wk and call if outside parameters. Discussed with stkarthik, CHF education Continue Home O2 Follow up in 4 weeks RIGOBERTO NIEVES MD 11/06/18 0902: CARDIO Progress Notes Assessment Assessment Patient seen and examined 11/05/18. Agree with TALENT RECRUITER's assessment and plan. Cardiac catheterization showed patent previously placed stents. Non-STEMI secondary to takotsubo's cardiomyopathy Continue current medical regimen and refer for cardiac rehabilitation Follow-up in 1 month RICHARD ANDERSEN APRN November 05, 2018 10:07 RIGOBERTO NIEVES MD November 06, 2018 09:02
[2018-11-05 11:00] VITALS: BP 136/74
--- NOTE | 2018-11-05 11:20 | PDOC ---
PROGRESS NOTES Chief Complaint Chief Complaint Acute myocardial infarction COPD exacerbation CAD s/p PCI/stents to LAD, LCx, and RCA. H/o Cardiomyopathy HTN PAD; stable. Anxiety History of Present Illness History of Present Illness Patient seen and examined Discussed with patient and family about Cath results Discussed with nurse Addressed family concerns about progression of COPD Family was anxious about patient going home, and the patient is anxious to go home Patient expressed no new complaints Vitals Vitals Vital Signs Date Time Temp Pulse Resp B/P (MAP) Pulse Ox O2 Delivery O2 Flow Rate FiO2 11/05/18 10:25 Nasal Cannula 3.0 11/05/18 08:28 81 157/86 11/05/18 07:02 94 11/05/18 07:00 97.5 22 97.5 Physical Exam General: Alert, Oriented X3, Cooperative, No acute distress Heart: Regular rate, Normal S1, Normal S2 Lungs: Wheezing Abdomen: Normal bowel sounds, Soft, No tenderness Extremities: No edema, Normal pulses Skin: No rashes, No significant lesion Labs LABS Laboratory Tests Test 11/04/18 15:05 11/05/18 02:50 11/05/18 02:55 Heparin Anti-Xa Act, Unfractionated < 0.10 IU/mL (0.30-0.70) Troponin I Quantitative 12.839 ng/mL (0.000-0.055) White Blood Count 12.6 x10^3/uL (4.0-11.0) Red Blood Count 3.99 x10^6/uL (3.50-5.40) Hemoglobin 11.6 g/dL (12.0-15.5) Hematocrit 36.1 % (36.0-47.0) Mean Corpuscular Volume 91 fL (79-100) Mean Corpuscular Hemoglobin 29 pg (25-35) Mean Corpuscular Hemoglobin Concent 32 g/dL (31-37) Red Cell Distribution Width 13.7 % (11.5-14.5) Platelet Count 289 x10^3/uL (140-400) Neutrophils (%) (Auto) 65 % (31-73) Lymphocytes (%) (Auto) 24 % (24-48) Monocytes (%) (Auto) 10 % (0-9) Eosinophils (%) (Auto) 1 % (0-3) Basophils (%) (Auto) 0 % (0-3) Neutrophils # (Auto) 8.2 x10^3uL (1.8-7.7) Lymphocytes # (Auto) 3.0 x10^3/uL (1.0-4.8) Monocytes # (Auto) 1.2 x10^3/uL (0.0-1.1) Eosinophils # (Auto) 0.1 x10^3/uL (0.0-0.7) Basophils # (Auto) 0.0 x10^3/uL (0.0-0.2) Sodium Level 134 mmol/L (136-145) Potassium Level 3.7 mmol/L (3.5-5.1) Chloride Level 98 mmol/L (98-107) Carbon Dioxide Level 28 mmol/L (21-32) Anion Gap 8 (6-14) Blood Urea Nitrogen 15 mg/dL (7-20) Creatinine 0.9 mg/dL (0.6-1.0) Estimated GFR (Cockcroft-Gault) 60.1 Glucose Level 108 mg/dL (70-99) Calcium Level 9.2 mg/dL (8.5-10.1) Thyroid Stimulating Hormone (TSH) 1.812 uIU/mL (0.358-3.74) Review of Systems Review of Systems Patient denies abdominal pain Patient denies LE swelling Assessment and Plan Assessmemt and Plan Assessment: Acute myocardial infarction COPD exacerbation CAD s/p PCI/stents to LAD, LCx, and RCA. H/o Cardiomyopathy HTN PAD; stable. Anxiety Plan: Cardiac monitoring Obtain 3rd Troponin level to verify improvement Home meds IVF DVT ppx Full code Discharge today if okay with cardiology Comment Review of Relevant I have reviewed the following items korin (where applicable) has been applied. Labs Laboratory Tests Test 11/03/18 21:30 11/04/18 01:40 11/04/18 05:30 11/04/18 09:11 Troponin I Quantitative 29.540 ng/mL (0.000-0.055) Prothrombin Time 12.9 SEC (11.7-14.0) Prothromb Time International Ratio 1.0 (0.8-1.1) Activated Partial Thromboplast Time 75 SEC (24-38) Heparin Anti-Xa Act, Unfractionated 0.59 IU/mL (0.30-0.70) 0.48 IU/mL (0.30-0.70) White Blood Count 9.4 x10^3/uL (4.0-11.0) Red Blood Count 4.25 x10^6/uL (3.50-5.40) Hemoglobin 13.1 g/dL (12.0-15.5) Hematocrit 38.4 % (36.0-47.0) Mean Corpuscular Volume 90 fL (79-100) Mean Corpuscular Hemoglobin 31 pg (25-35) Mean Corpuscular Hemoglobin Concent 34 g/dL (31-37) Red Cell Distribution Width 13.4 % (11.5-14.5) Platelet Count 294 x10^3/uL (140-400) Neutrophils (%) (Auto) 86 % (31-73) Lymphocytes (%) (Auto) 12 % (24-48) Monocytes (%) (Auto) 2 % (0-9) Eosinophils (%) (Auto) 0 % (0-3) Basophils (%) (Auto) 0 % (0-3) Neutrophils # (Auto) 8.0 x10^3uL (1.8-7.7) Lymphocytes # (Auto) 1.1 x10^3/uL (1.0-4.8) Monocytes # (Auto) 0.2 x10^3/uL (0.0-1.1) Eosinophils # (Auto) 0.0 x10^3/uL (0.0-0.7) Basophils # (Auto) 0.0 x10^3/uL (0.0-0.2) Segmented Neutrophils % 75 % (35-66) Band Neutrophils % 2 % (0-9) Lymphocytes % 18 % (24-48) Atypical Lymphocytes % (Manual) 1 % (0-0) Monocytes % 4 % (0-10) Platelet Estimate Adequate (ADEQUATE) Sodium Level 131 mmol/L (136-145) Potassium Level 3.5 mmol/L (3.5-5.1) Chloride Level 94 mmol/L (98-107) Carbon Dioxide Level 26 mmol/L (21-32) Anion Gap 11 (6-14) Blood Urea Nitrogen 14 mg/dL (7-20) Creatinine 1.0 mg/dL (0.6-1.0) Estimated GFR (Cockcroft-Gault) 53.2 Glucose Level 171 mg/dL (70-99) Calcium Level 9.5 mg/dL (8.5-10.1) Triglycerides Level 39 mg/dL (0-150) Cholesterol Level 165 mg/dL (0-200) LDL Cholesterol, Calculated 83 mg/dL (0-100) VLDL Cholesterol, Calculated 8 mg/dL (0-40) Non-HDL Cholesterol Calculated 91 mg/dL (0-129) HDL Cholesterol 74 mg/dL (40-60) Cholesterol/HDL Ratio 2.2 Test 11/04/18 15:05 11/05/18 02:50 11/05/18 02:55 Heparin Anti-Xa Act, Unfractionated < 0.10 IU/mL (0.30-0.70) Troponin I Quantitative 12.839 ng/mL (0.000-0.055) White Blood Count 12.6 x10^3/uL (4.0-11.0) Red Blood Count 3.99 x10^6/uL (3.50-5.40) Hemoglobin 11.6 g/dL (12.0-15.5) Hematocrit 36.1 % (36.0-47.0) Mean Corpuscular Volume 91 fL (79-100) Mean Corpuscular Hemoglobin 29 pg (25-35) Mean Corpuscular Hemoglobin Concent 32 g/dL (31-37) Red Cell Distribution Width 13.7 % (11.5-14.5) Platelet Count 289 x10^3/uL (140-400) Neutrophils (%) (Auto) 65 % (31-73) Lymphocytes (%) (Auto) 24 % (24-48) Monocytes (%) (Auto) 10 % (0-9) Eosinophils (%) (Auto) 1 % (0-3) Basophils (%) (Auto) 0 % (0-3) Neutrophils # (Auto) 8.2 x10^3uL (1.8-7.7) Lymphocytes # (Auto) 3.0 x10^3/uL (1.0-4.8) Monocytes # (Auto) 1.2 x10^3/uL (0.0-1.1) Eosinophils # (Auto) 0.1 x10^3/uL (0.0-0.7) Basophils # (Auto) 0.0 x10^3/uL (0.0-0.2) Sodium Level 134 mmol/L (136-145) Potassium Level 3.7 mmol/L (3.5-5.1) Chloride Level 98 mmol/L (98-107) Carbon Dioxide Level 28 mmol/L (21-32) Anion Gap 8 (6-14) Blood Urea Nitrogen 15 mg/dL (7-20) Creatinine 0.9 mg/dL (0.6-1.0) Estimated GFR (Cockcroft-Gault) 60.1 Glucose Level 108 mg/dL (70-99) Calcium Level 9.2 mg/dL (8.5-10.1) Thyroid Stimulating Hormone (TSH) 1.812 uIU/mL (0.358-3.74) Laboratory Tests Test 11/04/18 15:05 11/05/18 02:50 11/05/18 02:55 Heparin Anti-Xa Act, Unfractionated < 0.10 IU/mL (0.30-0.70) Troponin I Quantitative 12.839 ng/mL (0.000-0.055) White Blood Count 12.6 x10^3/uL (4.0-11.0) Red Blood Count 3.99 x10^6/uL (3.50-5.40) Hemoglobin 11.6 g/dL (12.0-15.5) Hematocrit 36.1 % (36.0-47.0) Mean Corpuscular Volume 91 fL (79-100) Mean Corpuscular Hemoglobin 29 pg (25-35) Mean Corpuscular Hemoglobin Concent 32 g/dL (31-37) Red Cell Distribution Width 13.7 % (11.5-14.5) Platelet Count 289 x10^3/uL (140-400) Neutrophils (%) (Auto) 65 % (31-73) Lymphocytes (%) (Auto) 24 % (24-48) Monocytes (%) (Auto) 10 % (0-9) Eosinophils (%) (Auto) 1 % (0-3) Basophils (%) (Auto) 0 % (0-3) Neutrophils # (Auto) 8.2 x10^3uL (1.8-7.7) Lymphocytes # (Auto) 3.0 x10^3/uL (1.0-4.8) Monocytes # (Auto) 1.2 x10^3/uL (0.0-1.1) Eosinophils # (Auto) 0.1 x10^3/uL (0.0-0.7) Basophils # (Auto) 0.0 x10^3/uL (0.0-0.2) Sodium Level 134 mmol/L (136-145) Potassium Level 3.7 mmol/L (3.5-5.1) Chloride Level 98 mmol/L (98-107) Carbon Dioxide Level 28 mmol/L (21-32) Anion Gap 8 (6-14) Blood Urea Nitrogen 15 mg/dL (7-20) Creatinine 0.9 mg/dL (0.6-1.0) Estimated GFR (Cockcroft-Gault) 60.1 Glucose Level 108 mg/dL (70-99) Calcium Level 9.2 mg/dL (8.5-10.1) Thyroid Stimulating Hormone (TSH) 1.812 uIU/mL (0.358-3.74) Medications Current Medications Ondansetron HCl (Zofran) 4 mg PRN Q6HRS PRN IV NAUSEA/VOMITING; Start 11/03/18 at 21:00 Calcium Carbonate/ Glycine (Tums) 500 mg PRN Q3HRS PRN PO UPSET STOMACH Last administered on 11/04/18at 23:32; Start 11/03/18 at 21:00 Morphine Sulfate (Morphine Sulfate) 2 mg PRN Q1HR PRN IV PAIN; Start 11/03/18 at 21:00 Acetaminophen (Tylenol) 650 mg PRN Q6HRS PRN PO Headaches, Temp > 101.5F; Start 11/03/18 at 21:00 Senna/Docusate Sodium (Senna Plus) 1 tab BID PO Last administered on 11/05/18at 08:27; Start 11/03/18 at 21:00 Heparin Sodium/ Dextrose 500 ml @ 0 mls/hr CONT PRN IV SEE I/O RECORD; Start 11/03/18 at 21:00; Stop 11/05/18 at 09:24; Status DC Heparin Sodium (Porcine) (Heparin Sodium) 1,750 unit PRN Q6HRS PRN IV FOR UFH LEVEL LESS THAN 0.2; Start 11/03/18 at 21:00; Stop 11/05/18 at 09:24; Status DC Aspirin (Ecotrin) 81 mg [id number] PO Last administered on 11/05/18 08:28; Start 11/04/18 at 08:00 Budesonide (Pulmicort) 0.5 mg RTBID NEB Last administered on 11/05/18at 07:01; Start 11/03/18 at 21:30 Clopidogrel Bisulfate (Plavix) 75 mg DAILY PO Last administered on 11/05/18 08:27; Start 11/04/18 at 09:00 Guaifenesin (Mucinex) 600 mg BID PO Last administered on 11/05/18 08:26; Start 11/03/18 at 21:30 Albuterol/ Ipratropium (Duoneb) 3 ml Q4HRS NEB Last administered on 11/05/18 10:25; Start 11/04/18 at 00:00 Levothyroxine Sodium (Synthroid) 75 mcg DAILY06 PO Last administered on 11/05/18at 07:37; Start 11/04/18 at 06:00 Losartan Potassium (Cozaar) 50 mg DAILY PO ; Start 11/04/18 at 09:00; Stop 11/04/18 at 09:00; Status DC Metoprolol Tartrate (Lopressor) 25 mg BID PO ; Start 11/03/18 at 21:30; Stop 11/03/18 at 21:48; Status DC Nitroglycerin (Nitrostat) 0.4 mg PRN Q5MIN PRN SL CHEST PAIN; Start 11/03/18 at 21:00; Stop 11/04/18 at 12:01; Status DC Non-Formulary Medication (Ascorbate Calcium/ Bioflavonoid (Vi-C 1,000 Mg Tablet)) 1 each DAILY PO ; Start 11/04/18 at 09:00; Status UNV Vitamin D (Vitamin D3) 5,000 unit DAILY PO Last administered on 11/05/18 08:28; Start 11/04/18 at 09:00 Non-Formulary Medication (Cinnamon Bark (Cinnamon)) 500 mg DAILY PO ; Start 11/04/18 at 09:00; Status UNV Cetirizine HCl (ZyrTEC) 10 mg DAILY PO ; Start 11/04/18 at 09:00 Non-Formulary Medication (Gluc Tran/Chondro Tran A/Vit C/Mn (Glucosamine Chondroitin Tab)) 1 each DAILY PO ; Start 11/04/18 at 09:00; Status UNV Multivitamins (Thera M Plus) 1 tab DAILY PO Last administered on 11/05/18at 08:28; Start 11/04/18 at 09:00 Paroxetine HCl (Paxil) 20 mg DAILY PO Last administered on 11/05/18at 08:25; Start 11/04/18 at 09:00 Non-Formulary Medication (Ubidecarenone (Co Q-10)) 10 mg DAILY PO ; Start 11/04/18 at 09:00; Status UNV Losartan Potassium (Cozaar) 100 mg DAILY PO Last administered on 11/05/18at 08:28; Start 11/04/18 at 09:00 Metoprolol Tartrate (Lopressor) 12.5 mg BID PO Last administered on 11/05/18at 08:26; Start 11/03/18 at 22:15 Hydrochlorothiazide (Hydrodiuril) 25 mg DAILY PO Last administered on 11/05/18at 08:28; Start 11/04/18 at 09:00 Albuterol Sulfate (Ventolin Neb Soln) 2.5 mg PRN Q4HRS PRN NEB SHORTNESS OF BREATH; Start 11/04/18 at 00:45 Nitroglycerin/ Dextrose 250 ml @ 1.5 mls/hr CONT PRN IV SEE I/O RECORD Last administered on 11/04/18at 04:45; Start 11/04/18 at 04:15 Iodixanol (Visipaque 320) 100 ml STK-MED ONCE .ROUTE ; Start 11/04/18 at 10:01; Stop 11/04/18 at 10:02; Status DC Lidocaine HCl (Xylocaine-Mpf 1% 2ml Vial) 2 ml STK-MED ONCE .ROUTE ; Start 11/04/18 at 10:01; Stop 11/04/18 at 10:02; Status DC Heparin Sodium/ Sodium Chloride 500 ml @ As Directed STK-MED ONCE .ROUTE ; Start 11/04/18 at 10:01; Stop 11/04/18 at 10:02; Status DC Fentanyl Citrate (Fentanyl 2ml Vial) 100 mcg STK-MED ONCE .ROUTE ; Start 11/04/18 at 10:09; Stop 11/04/18 at 10:10; Status DC Midazolam HCl (Versed) 2 mg STK-MED ONCE .ROUTE ; Start 11/04/18 at 10:09; Stop 11/04/18 at 10:10; Status DC Heparin Sodium (Porcine) (Heparin Sodium) 10,000 unit STK-MED ONCE .ROUTE ; Start 11/04/18 at 10:09; Stop 11/04/18 at 10:10; Status DC Verapamil HCl (Verapamil) 5 mg STK-MED ONCE .ROUTE ; Start 11/04/18 at 10:09; Stop 11/04/18 at 10:10; Status DC Nitroglycerin (Nitroglycerin) 200 mcg STK-MED ONCE .ROUTE ; Start 11/04/18 at 10:09; Stop 11/04/18 at 10:10; Status DC Lidocaine HCl (Lidocaine 1% 20ml Vial) 20 ml STK-MED ONCE .ROUTE ; Start 11/04/18 at 10:43; Stop 11/04/18 at 10:44; Status DC Heparin Sodium/ Sodium Chloride (HEPARIN for ARTERIAL LINE FLUSH) 1,000 unit 1X ONCE IART Last administered on 11/04/18 11:19; Start 11/04/18 at 11:00; Stop 11/04/18 at 11:03; Status DC Midazolam HCl (Versed) 2 mg 1X ONCE IV Last administered on 11/04/18 11:18; Start 11/04/18 at 11:00; Stop 11/04/18 at 11:03; Status DC Fentanyl Citrate (Fentanyl 2ml Vial) 100 mcg 1X ONCE IV Last administered on 11/04/18 11:18; Start 11/04/18 at 11:00; Stop 11/04/18 at 11:03; Status DC Iodixanol (Visipaque 320) 100 ml 1X ONCE IART Last administered on 11/04/18at 11:00; Start 11/04/18 at 11:00; Stop 11/04/18 at 11:03; Status DC Lidocaine HCl (Lidocaine 1% 20ml Vial) 20 ml 1X ONCE INJ Last administered on 11/04/18 11:19; Start 11/04/18 at 11:00; Stop 11/04/18 at 11:03; Status DC Lidocaine HCl (Xylocaine-Mpf 1% 2ml Vial) 2 ml 1X ONCE INJ Last administered on 5/6/19at 11:18; Start 11/04/18 at 11:00; Stop 11/04/18 at 11:03; Status DC Sodium Chloride (Normal Saline Flush) 3 ml QSHIFT PRN IV AFTER MEDS AND BLOOD DRAWS; Start 11/04/18 at 12:00 Sodium Chloride 1,000 ml @ 60 mls/hr [id number] IV ; Start 11/04/18 at 11:57 Nitroglycerin (Nitrostat) 0.4 mg PRN Q5MIN PRN SL CHEST PAIN; Start 11/04/18 at 12:00 Verapamil HCl (Verapamil) 5 mg STK-MED ONCE .ROUTE ; Start 11/04/18 at 11:00; Stop 11/05/18 at 09:03; Status DC Active Scripts Active Reported Repatha Syringe (Evolocumab) 140 Mg/1 Ml Syringe 140 Mg SQ Q2WKS Ventolin Hfa Inhaler (Albuterol Sulfate) 18 Gm Hfa.aer.ad 2 Puff INH Q4HRS Vi-C 1,000 Mg Tablet (Ascorbate Calcium/Bioflavonoid) 1 Each Tablet 1 Each PO DAILY Multivitamins (Multivitamin) 1 Each Tablet 1 Tab PO DAILY Glucosamine Chondroitin Tab (Gluc Tran/Chondro Tran A/Vit C/Mn) 1 Each Tablet 1 Each PO DAILY Vitamin D3 (Cholecalciferol (Vitamin D3)) 5,000 Unit Tablet 5,000 Unit PO DAILY Cinnamon (Cinnamon Bark) 500 Mg Capsule 500 Mg PO DAILY Calcium (Calcium Carbonate) 500 Mg Tablet 500 Mg PO DAILY Mucinex (Guaifenesin) 600 Mg Tablet.er 600 Mg PO BID Malena Allergy (Fexofenadine Hcl) 180 Mg Tablet 1 Tab PO DAILY Budesonide 0.5 Mg/2 Ml Ampul.neb 0.5 Mg IH BID Clopidogrel (Clopidogrel Bisulfate) 75 Mg Tablet 75 Mg PO DAILY Paxil (Paroxetine Hcl) 20 Mg Tablet 20 Mg PO DAILY NITROGLYCERIN SubLingual (Nitroglycerin) 0.4 Mg Tab.subl 0.4 Mg SL PRN Q5MIN PRN Metoprolol Tartrate 25 Mg Tablet 12.5 Mg PO BID Levothyroxine Sodium 75 Mcg Tablet 75 Mcg PO DAILYAC Duoneb 0.5-3(2.5) Mg/3 Ml (Albuterol/Ipratropium) 3 Ml Ampul.neb 3 Ml NEB Q4HRS Co Q-10 (Ubidecarenone) 10 Mg Capsule 10 Mg PO DAILY Cozaar (Losartan Potassium) 50 Mg Tablet 100 Mg PO DAILY Aspir 81 (Aspirin) 81 Mg Tablet.dr 81 Mg PO DAILY Vitals/I & O Vital Sign - Last 24 Hours 11/04/18 11/04/18 11/04/18 11/04/18 11:18 11:21 11:29 11:44 Pulse 92 88 86 Resp 19 19 16 20 B/P (MAP) 104/61 (75) 101/63 (76) Pulse Ox 96 94 92 O2 Delivery Nasal Cannula Nasal Cannula Nasal Cannula Nasal Cannula O2 Flow Rate 4.0 4.0 3.0 3.0 11/04/18 11/04/18 11/04/18 11/04/18 12:00 12:00 12:14 12:16 Pulse 82 82 Resp 15 16 B/P (MAP) 100/61 (74) 105/62 (76) Pulse Ox 92 93 97 O2 Delivery Nasal Cannula Nasal Cannula Nasal Cannula Nasal Cannula O2 Flow Rate 3.0 3.0 3.0 3.0 11/04/18 11/04/18 11/04/18 11/04/18 12:44 13:14 14:16 15:19 Pulse 84 86 92 92 Resp 16 16 20 18 B/P (MAP) 117/57 (77) 109/61 (77) 99/48 (65) 107/58 (74) Pulse Ox 95 97 94 94 O2 Delivery Nasal Cannula Nasal Cannula Nasal Cannula Nasal Cannula O2 Flow Rate 3.0 3.0 3.0 3.0 11/04/18 11/04/18 11/04/18 11/04/18 16:14 16:17 17:24 19:31 Temp 98.3 98.3 Pulse 102 Resp 18 B/P (MAP) 188/92 (124) Pulse Ox 95 95 96 O2 Delivery Nasal Cannula Nasal Cannula Nasal Cannula Nasal Cannula O2 Flow Rate 3.0 4.0 3.0 4.0 11/04/18 11/04/18 11/04/18 11/04/18 19:38 20:00 21:15 22:45 Temp 97.7 97.7 Pulse 99 99 Resp 18 B/P (MAP) 149/72 (97) 149/72 Pulse Ox 96 O2 Delivery Nasal Cannula Nasal Cannula Nasal Cannula O2 Flow Rate 4.0 3.0 4.0 11/04/18 11/05/18 11/05/18 11/05/18 22:53 02:23 02:41 07:00 Temp 98.0 97.9 97.5 98.0 97.9 97.5 Pulse 90 79 81 Resp 18 18 22 B/P (MAP) 116/53 (74) 133/60 (84) 157/86 (109) Pulse Ox 97 96 96 O2 Delivery Nasal Cannula Nasal Cannula Nasal Cannula Nasal Cannula O2 Flow Rate 4.0 4.0 4.0 3.0 11/05/18 11/05/18 11/05/18 11/05/18 07:02 08:00 08:26 08:28 Pulse 81 81 B/P (MAP) 157/86 157/86 Pulse Ox 94 O2 Delivery Nasal Cannula Nasal Cannula O2 Flow Rate 3.0 3.0 11/05/18 10:25 O2 Delivery Nasal Cannula O2 Flow Rate 3.0 Intake and Output 11/04/18 11/04/18 11/05/18 14:59 22:59 06:59 Intake Total 265.75 ml 1400 ml Output Total 300 ml Balance 265.75 ml 1100 ml BEKA FISHER K III DO November 05, 2018 11:19
--- NOTE | 2018-11-05 12:03 | NUR ---
Discharge Note: ANUEL TAM [address] [place] [address] Discharge instructions and discharge home medications reviewed with Patient and a copy given. All questions have been answered and understanding verbalized. The following instructions and handouts were given: HF, Heart attack in women Discontinued IV Patient discharged to home with self care via wheelchair
--- NOTE | 2018-11-05 13:05 | DS ---
DATE OF DISCHARGE: 11/05/2018 ADMISSION DIAGNOSIS: Acute myocardial infarction. DISCHARGE DIAGNOSES: 1. Resolving myocardial infarction. 2. History of previous coronary artery disease with 6 prior stents. CONSULTS: Cardiology. PROCEDURES: Cardiac catheterization. She did not have to get any new stents. HOSPITAL COURSE: The patient is a pleasant middle-aged female who has COPD and known coronary artery disease with 6 previous stents. She presented with chest pain. Her troponin was high, it was about 8. She was transferred from [facility] to our facility. Her troponin did bump up to 29. She was taken to the cleaner laboratory equipment, but mainly had moderate disease with 30% and 35% lesions, but no new stents had to be placed. She does have 6 old stents. This morning, I saw her, examined her. Her heart tones were normal. Her lungs were clear. She wants to go home. I discussed the case with nurse. We plan to discharge if okay with the consultants. DISPOSITION: Home. ACTIVITY: As tolerated. DIET: Cardiac. MEDICATIONS: Please see the MRAD. We put her back on her home medications, really did not make any changes. TOTAL TIME: 32 minutes. BEKA FISHER DO DR: ISABELA/gwen JOB#: [id number] / [id number]
== END 2018-11-05 12:13 | disposition home or self-care (01) | DRG 280 ==
LOC: 1 WEST ICU 20:15 → 2 NORTH 11-04 16:10
PROVIDERS: ADMIT Internal Medicine; ATTEND Internal Medicine
PROC: 4A023N7 Measurement of Cardiac Sampling and Pressure, Left Heart, Percutaneous Approach (ICD-10-PCS; principal; 2018-11-04)
PROC: B2151ZZ Fluoroscopy of Left Heart using Low Osmolar Contrast (ICD-10-PCS; 2018-11-04)
PROC: B2111ZZ Fluoroscopy of Multiple Coronary Arteries using Low Osmolar Contrast (ICD-10-PCS; 2018-11-04)
DX: I21.4 Non-ST elevation (NSTEMI) myocardial infarction (principal); J96.01 Acute respiratory failure with hypoxia; J44.1 Chronic obstructive pulmonary disease with (acute) exacerbation; I51.81 Takotsubo syndrome; I10 Essential (primary) hypertension; E78.5 Hyperlipidemia, unspecified; I25.10 Atherosclerotic heart disease of native coronary artery without angina pectoris; F41.9 Anxiety disorder, unspecified; M19.90 Unspecified osteoarthritis, unspecified site; I73.9 Peripheral vascular disease, unspecified; E03.9 Hypothyroidism, unspecified; I25.5 Ischemic cardiomyopathy; M85.80 Other specified disorders of bone density and structure, unspecified site; F17.200 Nicotine dependence, unspecified, uncomplicated; Z95.5 Presence of coronary angioplasty implant and graft; Z99.81 Dependence on supplemental oxygen; I25.2 Old myocardial infarction; Z88.8 Allergy status to other drugs, medicaments and biological substances; Z82.49 Family history of ischemic heart disease and other diseases of the circulatory system
CPT/HCPCS: 93458; G0269; 36415; 80048; 80061; 84443; 84484; 85007; 85025; 85520; 85610; 85730; 93005; 93308; 94640; 94760; 99152; 99153; C1713; C1769; C1892; J1644; J2250; J3010; J3490; J7620; J7626; Q9967